=== PATIENT | female | born 1935 | race Caucasian/White ===

== ENCOUNTER 2018-03-05 15:30 | Outpatient (RCR) | payer OTHER ==
[~2018-03-05 15:30] MED LIST: AMBIEN10 MG ORAL; ASPIR 8181 MG ORAL; ATIVAN1 MG ORAL; CRESTOR10 M1 ORAL; CYMBALTA30 MG ORAL; DIOVAN HCT 3201 EAC1 ORAL; DIOVAN160 MG ORAL; ESTRACE1 MG ORAL; FELODIPINE ER10 MG ORAL; HYDROCODON-ACE1 EA14 ORAL; LEVEMIR FL100 UNIT/1 SUBQ; NOVOLOG MI100 UNIT/3 SQ; PLAVIX75 MG ORAL; PLENDIL ORAL; PRAVACHOL20 MG ORAL; SYNTHROID150 MCG ORAL; VICODIN HP 10-1 EACH ORAL; ZOLPIDEM TARTRAT5 MG ORAL
== END 2018-03-26 | disposition home or self-care (01) ==
LOC: PTY 15:30
DX: M51.16 Intervertebral disc disorders with radiculopathy, lumbar region (principal)

== ENCOUNTER 2018-04-05 14:50 | Outpatient (RCR) | payer OTHER | END 2018-04-26 | disposition home or self-care (01) | LOC: PTY 14:50 | DX: M51.16 Intervertebral disc disorders with radiculopathy, lumbar region (principal); E11.9 Type 2 diabetes mellitus without complications; I10 Essential (primary) hypertension; Z85.850 Personal history of malignant neoplasm of thyroid ==